=== PATIENT | female | born 1980 | race Hispanic/Latino ===

== ENCOUNTER → 2016-11-20 | Day surgery (SDC) | payer OTHER ==
[~2016-11-20] VITALS: Ht 154.9 cm; Wt 86.2 kg
--- NOTE | 2016-11-20 11:48 | Operative Report ---
Operative/Inv Procedure Report Surgery Date: 11/20/16 Name of Procedure: Bilateral reduction mammoplasty Pre-Operative Diagnosis: Symptomatic macromastia Post-Operative Diagnosis: Same Estimated Blood Loss: scant (300) Surgeon/[employer] Developer: DONNY PLATA MD Anesthesia: general endotracheal tube Operative/Procedure Note Note: The patient was counseled in regards to the procedure the alternatives the risks and expected outcomes as relates to her request for surgical intervention for symptomatic macromastia. The patient was given a [place] consent form from the [employer] regards to breast reduction. She had 2 opportunities today to use a translation service and ask any questions she had but she had none. No guarantees were given in regards to cup size through the translation service. She then signed a [place] informed consent from the hospital for breast reduction. To the operative placed supine on the table. Of note the patient was marked in the standing position preoperatively for a Babb pattern technique. Venodyne boots were placed on the cast and then general endotracheal anesthesia was established intravenous antibiotics given. The chest were prepped and draped in usual sterile fashion. A Babb pattern inferior pedicle technique was done bilaterally removing superior medial and lateral segments. 860 Grams was removed from each side. The patient was put in the sitting position to assess symmetry of the nipple areola complexes which was done with a ruler. 3 layer closure of all incisions was carried out. End dictation
== END ==
LOC: STS 01:35
DX: N62 Hypertrophy of breast (principal); M54.89 Other dorsalgia; M54.6 Pain in thoracic spine; E66.9 Obesity, unspecified
CPT/HCPCS: 81025; 88305; J0690; J2250